=== PATIENT | female | born 1980 | race Caucasian/White ===

== ENCOUNTER 2017-01-27 11:36 | Inpatient (IN) | payer OTHER ==
[~2017-01-27] VITALS: Ht 162.6 cm; Wt 90.0 kg
[2017-01-27 11:54] VITALS: BP 108/75; PULSE 78; RESP 18; Ht 162.6 cm; Wt 90.0 kg
[2017-01-27] MEDS ORDERED: PRENAT PO (15:06)
[2017-01-27] MEDS ORDERED: MISOPROSTOL 200 MCG TAB PR PRN (15:30)
[2017-01-27] MEDS ORDERED: OXYTOCIN 30 UNITS/LR 500 ML IV PRN (15:30)
[2017-01-27] MEDS ORDERED: MINERAL OIL LIGHT 10 ML VIAL TOP PRN (15:30)
[2017-01-27] MEDS ORDERED: BUTORPHANOL 2 MG INJ IV PRN (15:30)
[2017-01-27] MEDS ORDERED: IBUPROFEN 600 MG TAB PO PRN (15:30)
[2017-01-27] MEDS ORDERED: METHYLERGONOVINE 0.2 MG INJ IM PRN (15:30)
[2017-01-27] MEDS ORDERED: CARBOPROST 250 MCG INJ IM PRN (15:30)
[2017-01-27] MEDS ORDERED: LACTATED RINGER'S 1,000 ML IV PRN (15:30)
[2017-01-27] MEDS ORDERED: OXYTOCIN 30 UNITS/LR 500 ML IV SCH ×2 (15:30)
[2017-01-27] MEDS ORDERED: LIDOCAINE 1% (MPF) 30 ML INJ INJ PRN (15:30)
[2017-01-27] MEDS: LACTATED RINGER'S 1,000 ML IV SCH ×2 (15:36→21:55)
[2017-01-27 16:08] LABS: BASOPHILS % 0.2 % (0.0-2.0); EOSINOPHILS # 0.2 10^3/ul (0.0-0.5); EOSINOPHILS % 1.2 % (0.0-7.0); HEMATOCRIT 40.6 % (37.0-47.0); HEMOGLOBIN 13.8 g/dl (12.0-16.0); LYMPHOCYTES # 2.5 10^3/ul (0.8-2.9); LYMPHOCYTES % 18.1 % (15.0-51.0); MEAN CORPUSCULAR HEMOGLOBIN 29.8 pg (29.0-33.0); MEAN CORPUSCULAR VOLUME 87.7 fl (82.0-101.0); MEAN PLATELET VOLUME 8.8 fl (7.4-10.4); MONOCYTES % 6.9 % (0.0-11.0); NEUTROPHIL # 10.1 10^3/ul (1.6-7.5); NEUTROPHILS % 72.5 % (39.0-77.0); PLATELET COUNT 225 10^3/UL (140-415); RED BLOOD COUNT 4.63 10^6/ul (4.20-5.40); RED CELL DISTRIBUTION WIDTH 14.5 % (11.5-14.5)
[2017-01-27 16:35] LABS: INR 0.89; PT RATIO 0.9
[2017-01-27 16:36] LABS: PARTIAL THROMBOPLASTIN TIME 27.2 Sec (25.0-35.0)
[2017-01-27] MEDS ORDERED: LACTATED RINGER'S 1,000 ML IV ONE (17:13)
[2017-01-27] MEDS ORDERED: KETOROLAC 30 MG INJ IV PRN (17:30)
[2017-01-27] MEDS ORDERED: morphine 4 MG/ML VIAL IV PRN ×2 (17:30)
[2017-01-27] MEDS ORDERED: TRIMETHOBENZAMIDE 100 MG/ML VIAL IM PRN (17:30)
[2017-01-27] MEDS ORDERED: NALBUPHINE HCL (10 MG/1 ML) INJ IV PRN (17:30)
[2017-01-27] MEDS ORDERED: NALOXONE (0.4 MG/ML) INJ IV PRN (17:30)
[2017-01-27] MEDS ORDERED: ONDANSETRON 4 MG INJ IV PRN (17:30)
[2017-01-27] MEDS ORDERED: DIPHENHYDRAMINE 50 MG INJ IV PRN (17:30)
[2017-01-27] MEDS ORDERED: CITRIC ACID/NA CITRATE 30 ML CUP PO ONE (17:30)
[2017-01-27] MEDS ORDERED: ONDANSETRON 4 MG INJ IV ONE (17:30)
[2017-01-27] MEDS ORDERED: FENTAnyl 2MCG/ML-ROPIV 0.2% 100 ML BAG EPI SCH (17:30)
--- NOTE | 2017-01-27 18:05 | HP ---
Date/Time of Note Date/Time of Note DATE: 01/27/17 TIME: 18:01 OB - History Hx of Present Free Text/Dictation Admitted at 39+ weeks through not a stress test unit because of variable deceleration of heart tones Noticed to have variable decelerations in labor delivery as well heart tones tracings remained reactive Last Menstrual Period: Apr 28, 2017 Estimated Due Date: Feb 02, 2017 : 2 Para: 1 Care: Good Care Ultrasounds: Normal mid trimester US Obstetrical Complications: Other (LOW kuldip-a) Medical Complications: None Past Family/Social History * Past Medical, Surgical, Family and Obstetric Histories reviewed from chart. Blood Type: B+ Rubella: immune RPR/VDRL: Negative GBS Status: Negative HBsAG: Negative OB Admission Exam Vital Signs Vital Signs Vital Signs Date Time Temp Pulse Resp B/P Pulse Ox O2 Delivery O2 Flow Rate FiO2 01/27/17 11:54 99.7 78 18 108/75 Room Air Physical Exam HEENT: WNL Heart: Rhythm Normal Lungs: Clear, Equal Abdomen: WNL Extremities: Normal Reflexes: Normal Cervical Dilatation: 2cm Effacement: 50% Station: -3 Membranes: Intact Heart Rate: 130's Accelerations: Accelerations Present Decelerations: Variable Decelerations Varibility: Marked Contractions on Admission: >10 Minutes Apart Last 72 hours Lab Results CBC & BMP 01/27/17 15:35 OB Assessment/Plan Other Assessment: Term gestation sporadic variable deceleration of heart tones Other plan: We will continue with slow and spontaneous labor CONSUELO PIEDRA MD Jan 27, 2017 18:05
--- NOTE | 2017-01-27 18:16 | TRIAGE ---
OB Triage Datetime Report Generated by CPN: 01/27/2017 18:15 Datetime: 01/27/2017 18:00 Labor Evaluation Frequency: 3-4 Monitor Mode: External Duration (sec)2399: 40-60 Quality: Strong Pattern: Normal: <= 5 Contractions in 10 Minutes Resting Tone [place]: Relaxed Heart Rate FHR Baseline Rate: 135 Monitor Mode: External US Variability: Moderate 6-25 bpm Decelerations: None Category: Category I Pain Assessment Pain Scale: 5 Pain Presence: Intermittent Pain Type: Contraction Pain Location: Abdomen Pain Goal: 3 Pain Relief Measures: Epidural Given Datetime: 01/27/2017 17:26 Labor Evaluation Frequency: 3-4 Monitor Mode: External Duration (sec)2399: 80-90 Quality: Strong Pattern: Normal: <= 5 Contractions in 10 Minutes Resting Tone [place]: Relaxed Heart Rate FHR Baseline Rate: 135 Monitor Mode: External US Variability: Moderate 6-25 bpm Accelerations: 15X15 Decelerations: None Category: Category I Pain Assessment Pain Scale: 8 Pain Presence: Intermittent Pain Type: Contraction Pain Location: Abdomen Pain Goal: 3 Datetime: 01/27/2017 17:09 Vaginal Exam Dilatation (cms): 3.5 Effacement (%): 80 Station: -2 Exam By: [facility] Datetime: 01/27/2017 16:59 Labor Evaluation Frequency: 3-4 Monitor Mode: External Duration (sec)2399: 60-90 Quality: Strong Pattern: Normal: <= 5 Contractions in 10 Minutes Resting Tone [place]: Relaxed Heart Rate FHR Baseline Rate: 135 Monitor Mode: External US Variability: Moderate 6-25 bpm Accelerations: 15X15 Decelerations: Variable Category: Category II Pain Assessment Pain Scale: 8 Pain Presence: Intermittent Pain Type: Contraction Pain Location: Abdomen Pain Goal: 3 Datetime: 01/27/2017 16:45 Interventions: Side to Side Comments: Reposition pt Datetime: 01/27/2017 16:30 Labor Evaluation Frequency: 3-5 Monitor Mode: External Duration (sec)2399: 50-60 Quality: Strong Pattern: Normal: <= 5 Contractions in 10 Minutes Resting Tone [place]: Relaxed Heart Rate FHR Baseline Rate: 135 Monitor Mode: External US Variability: Moderate 6-25 bpm Accelerations: 15X15 Decelerations: None Category: Category I Pain Assessment Pain Scale: 8 Pain Presence: Intermittent Pain Type: Contraction Pain Location: Abdomen Datetime: 01/27/2017 15:58 Assessment Type: Admission Assessment Vaginal Bleeding: None Maternal Assessment Level of Consciousness: Fully Conscious DTR's/Clonus: DTRs 2+; No Clonus Headache: Denies Blurred Vision: No Respiratory Effort: Unlabored; Regular Rhythm; Equal Expansion Breath Sounds, Left: Clear and Equal Breath Sounds, Right: Clear and Equal Nausea/Vomiting: Denies RUQ Epigastric Pain: Denies Lower Extremities Edema: None Degree: None Upper Extremities Edema: None Degree: None Facial Edema: None Fall Risk Assessment History of Falling: (0) No Secondary Diagnosis: (0) No Ambulatory Aid: (0) Bedrest/Nurse Assist IV Therapy: (20) Yes Gait: (0) Normal/Bedrest/Immobile Mental Status: (0) Oriented to Own Ability Fall Score: 20 Fall Risk Score Definition: No Risk: No action required Labor Evaluation Frequency: 4-5 Duration (sec)2399: 50-80 Quality: Moderate Pattern: Normal: <= 5 Contractions in 10 Minutes Resting Tone [place]: Relaxed Heart Rate FHR Baseline Rate: 135 Variability: Moderate 6-25 bpm Accelerations: 15X15 Decelerations: Variable Category: Category II Pain Assessment Pain Scale: 8 Pain Presence: Intermittent Pain Type: Contraction Pain Location: Abdomen Pain Goal: 3 Datetime: 01/27/2017 15:57 Time of Arrival: 01/27/2017 15:20 EGA: 39.1 Arrived By: Ambulatory Arrived From: Other Unit in Hospital Datetime: 01/27/2017 14:50 Labor Evaluation Frequency: OCC Monitor Mode: External Quality: Mild Pattern: Normal: <= 5 Contractions in 10 Minutes Resting Tone [place]: Relaxed Heart Rate FHR Baseline Rate: 140 Monitor Mode: External US FHR Baseline Changes: No Baseline Change Variability: Moderate 6-25 bpm Accelerations: 15X15 Decelerations: None Category: Category I Pain Assessment Pain Scale: 3 Pain Presence: Intermittent Pain Type: Contraction; Pressure Pain Location: Abdomen; Back Pain Relief Measures: Comfort Measures Datetime: 01/27/2017 14:49 Stage of : Labor Pain Goal: 1 Datetime: 01/27/2017 13:50 Labor Evaluation Frequency: OCC Monitor Mode: External Quality: Mild Pattern: Normal: <= 5 Contractions in 10 Minutes Resting Tone [place]: Relaxed Heart Rate FHR Baseline Rate: 140 Monitor Mode: External US FHR Baseline Changes: No Baseline Change Variability: Moderate 6-25 bpm Accelerations: 15X15 Decelerations: None Category: Category I Pain Presence: None/Denies Datetime: 01/27/2017 13:21 Interventions: Side to Side Datetime: 01/27/2017 13:20 Decelerations: Prolonged Comments: Prolonged decel noted with sebastian to 50 lasting about 180 seconds with moderate variabili ty at baseline. Pt repositioned R lateral. Will continue to monitor FHR closely Datetime: 01/27/2017 12:52 Comments: Luis updated regarding pt's admission. MD Smith informed RN he will come see pt so on. Datetime: 01/27/2017 12:51 Monitor Mode: External Quality: Mild Pattern: Normal: <= 5 Contractions in 10 Minutes Resting Tone [place]: Relaxed Heart Rate FHR Baseline Rate: 140 Monitor Mode: External US FHR Baseline Changes: No Baseline Change Variability: Moderate 6-25 bpm Accelerations: 15X15 Decelerations: Early; Variable Category: Category II Pain Presence: None/Denies Datetime: 01/27/2017 12:00 Assessment Type: Triage Maternal Assessment Level of Consciousness: Fully Conscious DTR's/Clonus: DTRs 2+; No Clonus Headache: Denies Blurred Vision: No Respiratory Effort: Unlabored; Regular Rhythm; Equal Expansion Breath Sounds, Left: Clear and Equal Breath Sounds, Right: Clear and Equal Nausea/Vomiting: Denies RUQ Epigastric Pain: Denies Lower Extremities Edema: Bilateral Lower Extremities Degree: Trace Upper Extremities Edema: None Degree: None Facial Edema: None Fall Risk Assessment History of Falling: (0) No Secondary Diagnosis: (0) No Ambulatory Aid: (0) Bedrest/Nurse Assist IV Therapy: (0) No Gait: (0) Normal/Bedrest/Immobile Mental Status: (0) Oriented to Own Ability Fall Score: 0 Fall Risk Score Definition: No Risk: No action required Vaginal Exam Dilatation (cms): 3.0 Effacement (%): 60 Station: -2 Exam By: Chrystal IGLESIAS Datetime: 01/27/2017 11:56 Time of Arrival: 01/27/2017 11:35 EGA: 39.1 Arrived By: Wheelchair Arrived From: Other Unit in Hospital Chief Complaint: From NST decels Movement: Present Contractions: Denies/Absent Rupture of Membranes: Denies Vaginal Bleeding: Normal Show Vaginal Discharge: Denies Recent Sexual Intercouse: Denies Abdominal Trauma: Not Applicable Patient Complaints: Contractions Time Provider Notified: 01/27/2017 12:52 Provider Notified: Luis Initial Plan: NST Datetime: 01/27/2017 11:49 Stage of : OB Triage Datetime: 01/27/2017 10:46 Vaginal Exam Dilatation (cms): 2.5 Effacement (%): 60 Station: -3 Exam By: Cookie PAUL RN Datetime: 01/03/2017 09:23 Comments: Loss of ultrasound contact with heart tone, RN at bedside, ultrasound readjusted. Datetime: 01/03/2017 09:10 Comments: Loss of ultrasound contact with heart rate. RN at bedside, ultrasound readjusted.
[2017-01-27] MEDS ORDERED: TERBUTALINE 1 MG/ML INJ SC ONE (22:30)
[2017-01-28] MEDS: LACTATED RINGER'S 1,000 ML IV SCH ×4 (01:38→23:00)
--- NOTE | 2017-01-28 03:40 | LDN ---
Date/Time of Note Date/Time of Note DATE: 01/28/17 TIME: 03:30 Delivery Summary normal vaginal delivery after ARM done at 6cm fluid was mec stained IUPC with amnio infusion Weeks of Gestation IUP [id number] Placenta Delivered: Spontaneously Meconium: Thick Episiotomy: No Perineal laceration: 2 Laceration repair: 00 ch gut Anesthesia type: Epidural Estimated blood loss: 200 Sponge & Needle done & correct: Yes All needle counts correct: Yes Any foreign bodies felt in the: No Problems: Infant Delivery Information Sex Infant Sex: male Apgars 1 Minute: 8 5 Minute: 9 Suctioning Nose & mouth suctioned at eddie: Yes Delee suction performed: No Umbilical Cord Umbilical cord with: 3 Vessels Cord presentations: no nuchal cord Cord Blood was obtained: Yes Mother & Baby Disposition Disposition Mom & Baby to Maternity; Good: Yes Mom transferred to: Other () Baby to NICU: No ABILIO CUNHA MD Jan 28, 2017 03:40
--- NOTE | 2017-01-28 03:47 | QN ---
Documentation Comment aartificial ruptured membrane done at 2312 on 01/27/17 at 6cm 100% high with fundal pressure on trendelenburg postion mec stained amniotic fluid with blood in mod amount' no change on pattern of heart tracing at least presenting part became lower down to -2 continue to allow labor with close monitoring ABILIO CUNHA MD Jan 28, 2017 03:47
[2017-01-28 05:25] VITALS: BP 120/58; PULSE 103; RESP 18
[2017-01-28] MEDS ORDERED: METHYLERGONOVINE 0.2 MG INJ IM PRN (05:30)
[2017-01-28] MEDS ORDERED: WITCH HAZEL/GLYCERIN PAD PR PRN (05:30)
[2017-01-28] MEDS ORDERED: BENZOCAINE 20% 56 ML SPRAY TOP PRN (05:30)
[2017-01-28] MEDS ORDERED: ZOLPIDEM 5 MG TAB PO PRN (05:30)
[2017-01-28] MEDS ORDERED: CARBOPROST 250 MCG INJ IM PRN (05:30)
[2017-01-28] MEDS ORDERED: LANOLIN 7 GM TUBE TOP PRN (05:30)
[2017-01-28] MEDS ORDERED: MISOPROSTOL 200 MCG TAB PR PRN (05:30)
[2017-01-28] MEDS ORDERED: OXYTOCIN 30 UNITS/LR 500 ML IV PRN (05:30)
[2017-01-28] MEDS ORDERED: OXYCODONE/ASPIRIN (4.88/325) TAB PO PRN ×2 (05:30)
[2017-01-28 06:00] VITALS: BP 119/81; PULSE 109; RESP 18
[2017-01-28] MEDS: IBUPROFEN 600 MG TAB PO SCH ×4 (06:00→23:50)
[2017-01-28 07:45] VITALS: BP 126/60; PULSE 100; RESP 20
[2017-01-28] MEDS: SENNA/DOCUSATE NA (8.6MG/50MG) TAB PO SCH ×2 (10:00→21:14)
[2017-01-28 16:00] VITALS: BP 106/51; RESP 18
[2017-01-28] MEDS: CEPHALEXIN 500 MG CAP PO SCH ×2 (18:14→23:49)
[2017-01-28 19:40] VITALS: BP 108/67; PULSE 68; RESP 19
[2017-01-29 04:00] VITALS: BP 102/61; PULSE 85; RESP 19
[2017-01-29] MEDS: CEPHALEXIN 500 MG CAP PO SCH ×3 (05:40→16:59)
[2017-01-29] MEDS: IBUPROFEN 600 MG TAB PO SCH ×3 (05:40→16:59)
[2017-01-29 08:22] LABS: BASOPHIL # 0.1 10^3/ul (0.0-0.1); BASOPHILS % 0.3 % (0.0-2.0); EOSINOPHILS # 0.3 10^3/ul (0.0-0.5); EOSINOPHILS % 1.8 % (0.0-7.0); HEMATOCRIT 34.1 % (37.0-47.0); HEMOGLOBIN 11.4 g/dl (12.0-16.0); LYMPHOCYTES # 3.7 10^3/ul (0.8-2.9); LYMPHOCYTES % 19.2 % (15.0-51.0); MEAN CORPUSCULAR HEMOGLOBIN 30.2 pg (29.0-33.0); MEAN CORPUSCULAR HGB CONC 33.4 g/dl (32.0-37.0); MEAN CORPUSCULAR VOLUME 90.5 fl (82.0-101.0); MONOCYTE # 1.3 10^3/ul (0.3-0.9); MONOCYTES % 6.6 % (0.0-11.0); NEUTROPHIL # 13.8 10^3/ul (1.6-7.5); NEUTROPHILS % 71.1 % (39.0-77.0); PLATELET COUNT 174 10^3/UL (140-415); RED BLOOD COUNT 3.77 10^6/ul (4.20-5.40); RED CELL DISTRIBUTION WIDTH 14.8 % (11.5-14.5); WHITE BLOOD COUNT 19.4 10^3/ul (4.8-10.8)
[2017-01-29 09:00] VITALS: BP 96/54; PULSE 84; RESP 16
[2017-01-29] MEDS: SENNA/DOCUSATE NA (8.6MG/50MG) TAB PO SCH ×2 (09:00→21:00)
--- NOTE | 2017-01-29 13:49 | DS ---
Date/Time of Note Date/Time of Note Home next day DATE: 01/29/17 TIME: 13:48 Obstetrical Discharge Record Final Diagnosis Final Diagnosis: Term delivered Other Final Diagnosis Status post vaginal delivery Vaginal Delivery Obstetrical Delivery: Spontaneous, Laceration, Repaired Complications Augmentation: Yes Condition on Discharge Physical Assessment Last Vitals: See nurse's notes Voiding: Yes Bowel Movement: Yes Breast: Soft, non-tender, Filling Fundus: Firm Abdomen and Incision: Soft bowel sounds positive Episiotomy: Not applicable Perineum is healing Calf Tenderness: No Patient Condition: Good CONSUELO PIEDRA MD Jan 29, 2017 13:49
--- NOTE | 2017-01-29 13:49 | PD.PPDC ---
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
[2017-01-29] MEDS ORDERED: IBUP-1542 PO (13:50)
[2017-01-29 16:00] VITALS: BP 109/64; PULSE 91; RESP 17
[2017-01-29] MEDS ORDERED: DIBUCAINE 1% 30 GM OINT TOP PRN (19:00)
[2017-01-29 19:45] VITALS: BP 118/73; PULSE 95; RESP 18
[2017-01-30] MEDS: IBUPROFEN 600 MG TAB PO SCH ×4 (00:14→18:31)
[2017-01-30] MEDS: CEPHALEXIN 500 MG CAP PO SCH ×4 (00:14→18:00)
--- NOTE | 2017-01-30 02:37 | NSTRPT ---
NST Information Datetime Report Generated by CPN: 01/30/2017 02:37 Datetime: 01/27/2017 09:56 NST Information EGA: 39.1 Test Number: 14 Time on Monitor: 01/27/2017 10:00 Time off Monitor: 01/27/2017 10:39 NST Duration (Min): 39 Reason for NST: Low JUAN DANIEL Test and Monitor Explained: Monitor Explained; Test Explained; Verbalized Understanding Pulse: 96 Resp: 18 SBP: 99 DBP: 55 Test Evaluation NST Interventions: Reposition Patient Patient States Movement: Present Contraction Frequency: irregular FHR Baseline : 140 Variability: Moderate 6-25bpm Accelerations: 15X15 Decelerations: Early FHR Category: Category II NST Results: Non-Reactive Comments: No U/S done. Report given to Dr. Smith. New orders is send patient to OB-TRG. Explain t o pt plan of care. Pt states understanding. No further questions asked at this time. Pt of hospital as ordered. Electronically Signed By E-Signature: with User ID: [id number] Datetime: 01/24/2017 09:18 NST Information EGA: 38.5 Test Number: 13 Time on Monitor: 01/24/2017 09:51 Time off Monitor: 01/24/2017 10:18 NST Duration (Min): 27 Reason for NST: Low JUAN DANIEL Test and Monitor Explained: Monitor Explained; Test Explained; Verbalized Understanding Pulse: 88 Resp: 18 SBP: 128 DBP: 60 Test Evaluation NST Interventions: PO Hydration; Food Given Patient States Movement: Present Contraction Frequency: x1 contraction FHR Baseline : 130 Variability: Moderate 6-25bpm Accelerations: 15X15 Decelerations: None FHR Category: Category I NST Results: Reactive Comments: Pt to U/S, IFRAH 13.8cm, cephalic 1020-Pt discharged home with term labor precautions. Discussed kick counts, follow-up NST/A FI given. Pt verbalizes understanding and denies questions. Datetime: 01/20/2017 10:34 NST Information EGA: 38.1 NST Duration (Min): 26 Datetime: 01/17/2017 09:50 NST Information EGA: 37.5 NST Duration (Min): 24 Datetime: 01/13/2017 10:01 NST Information EGA: 37.1 NST Duration (Min): 48 Datetime: 01/10/2017 08:19 NST Information EGA: 36.5 NST Duration (Min): 35 Datetime: 01/06/2017 14:03 NST Information EGA: 36.1 NST Duration (Min): 24 Datetime: 01/03/2017 08:17 NST Information EGA: 35.5 NST Duration (Min): 59 Datetime: 12/30/2016 08:22 NST Information EGA: 35.1 NST Duration (Min): 31 Datetime: 12/23/2016 08:16 NST Information EGA: 34.1 NST Duration (Min): 51 Datetime: 12/20/2016 08:10 NST Information EGA: 33.5 NST Duration (Min): 59 Datetime: 12/16/2016 08:18 NST Information EGA: 33.1 NST Duration (Min): 19 Datetime: 12/13/2016 08:15 NST Information EGA: 32.5 NST Duration (Min): 31 Datetime: 12/09/2016 09:58 NST Information EGA: 32.1 Datetime: 12/09/2016 09:52 NST Duration (Min): 41
[2017-01-30] MEDS: SENNA/DOCUSATE NA (8.6MG/50MG) TAB PO SCH (03:04)
[2017-01-30 05:07] VITALS: BP 100/53; PULSE 91; RESP 18
[2017-01-30 08:41] LABS: BASOPHIL # 0.1 10^3/ul (0.0-0.1); BASOPHILS % 0.4 % (0.0-2.0); EOSINOPHILS # 0.4 10^3/ul (0.0-0.5); EOSINOPHILS % 2.4 % (0.0-7.0); HEMATOCRIT 35.5 % (37.0-47.0); HEMOGLOBIN 11.9 g/dl (12.0-16.0); LYMPHOCYTES % 17.7 % (15.0-51.0); MEAN CORPUSCULAR HEMOGLOBIN 30.1 pg (29.0-33.0); MEAN CORPUSCULAR HGB CONC 33.5 g/dl (32.0-37.0); MEAN CORPUSCULAR VOLUME 89.9 fl (82.0-101.0); MONOCYTE # 1.2 10^3/ul (0.3-0.9); MONOCYTES % 6.8 % (0.0-11.0); NEUTROPHIL # 12.2 10^3/ul (1.6-7.5); NEUTROPHILS % 71.5 % (39.0-77.0); PLATELET COUNT 193 10^3/UL (140-415); RED BLOOD COUNT 3.95 10^6/ul (4.20-5.40); RED CELL DISTRIBUTION WIDTH 14.6 % (11.5-14.5)
[2017-01-30 09:00] VITALS: BP 123/69; PULSE 86; RESP 16
[2017-01-30] MEDS ORDERED: DIPHTH/TET/ACEL PERTUSS (ADULT) 0.5 ML VIAL IM* ONE (09:00)
--- NOTE | 2017-02-04 12:13 | NSTRPT ---
NST Information Datetime Report Generated by CPN: 02/04/2017 12:13 Datetime: 01/27/2017 09:56 NST Information EGA: 39.1 NST Duration (Min): 39 Datetime: 01/24/2017 09:18 NST Information EGA: 38.5 NST Duration (Min): 27 Electronically Signed By E-Signature: with User ID: [id number] Datetime: 01/20/2017 10:34 NST Information EGA: 38.1 NST Duration (Min): 26 Datetime: 01/17/2017 09:50 NST Information EGA: 37.5 NST Duration (Min): 24 Datetime: 01/13/2017 10:01 NST Information EGA: 37.1 NST Duration (Min): 48 Datetime: 01/10/2017 08:19 NST Information EGA: 36.5 NST Duration (Min): 35 Datetime: 01/06/2017 14:03 NST Information EGA: 36.1 NST Duration (Min): 24 Datetime: 01/03/2017 08:17 NST Information EGA: 35.5 NST Duration (Min): 59 Datetime: 12/30/2016 08:22 NST Information EGA: 35.1 NST Duration (Min): 31 Datetime: 12/23/2016 08:16 NST Information EGA: 34.1 NST Duration (Min): 51 Datetime: 12/20/2016 08:10 NST Information EGA: 33.5 NST Duration (Min): 59 Datetime: 12/16/2016 08:18 NST Information EGA: 33.1 NST Duration (Min): 19 Datetime: 12/13/2016 08:15 NST Information EGA: 32.5 NST Duration (Min): 31 Datetime: 12/09/2016 09:58 NST Information EGA: 32.1 Datetime: 12/09/2016 09:52 NST Duration (Min): 41
== END 2017-01-30 18:39 | disposition home or self-care (01) | DRG 775 ==
LOC: L-D 11:36 → OBT 11:36 → L-D 14:50 → PP1 01-28 05:23
PROVIDERS: ADMIT Obstetrics & Gynecology; ATTEND Obstetrics & Gynecology
PROC: 10E0XZZ Delivery of Products of Conception, External Approach (ICD-10-PCS; principal; 2017-01-28)
PROC: 0KQM0ZZ Repair Perineum Muscle, Open Approach (ICD-10-PCS; 2017-01-28)
PROC: 3E033VJ Introduction of Other Hormone into Peripheral Vein, Percutaneous Approach (ICD-10-PCS; 2017-01-28)
DX: O70.1 Second degree perineal laceration during delivery (principal); Z37.0 Single live birth; E66.9 Obesity, unspecified; O99.214 Obesity complicating childbirth; Z68.34 Body mass index [BMI] 34.0-34.9, adult; Z3A.39 39 weeks gestation of pregnancy
CPT/HCPCS: 62319; 85025; 85610; 85730; 86592; 86900; 86901; 87340; 88307; 90715; 99464; A4310; G0463; J2590; J3010; J3105; J7120

== ENCOUNTER 2017-09-12 10:33 | Emergency (ER) | END 2017-09-12 15:13 | disposition home or self-care (01) ==

== ENCOUNTER → 2017-12-26 | Outpatient (CLI) | END | disposition home or self-care (01) ==

== ENCOUNTER 2018-04-03 09:06 | Inpatient (IN) | END 2018-04-05 13:25 | disposition home or self-care (01) | DRG 807 ==